=== PATIENT | female | born 1950 | race Caucasian/White ===

== ENCOUNTER → 2024-03-27 06:43 | Outpatient (REF) | payer MEDICARE, OTHER, SELFPAY | LOC: MRI 06:43 | PROVIDERS: ATTENDING PHYSICIAN Orthopaedic Surgery; FAMILY PHYSICIAN Physician Assistant Medical | DX: M54.50 Low back pain, unspecified (principal) | CPT/HCPCS: 72148 ==

== ENCOUNTER → 2024-06-25 09:39 | Outpatient (REF) | payer MEDICARE, OTHER, SELFPAY | LOC: WDC 09:39 | PROVIDERS: ATTENDING PHYSICIAN Physician Assistant Medical | DX: N64.59 Other signs and symptoms in breast (principal) | CPT/HCPCS: 76642; 77062; 77066 ==